=== PATIENT | male | born 1970 | race Two or more races ===

== ENCOUNTER 2024-04-04 08:47 | Emergency (ER) | payer BC, OTHER ==
[~2024-04-04] VITALS: Ht 172.7 cm; Wt 73.9 kg
[2024-04-04 09:24] VITALS: BP 130/88; PULSE 102; RESP 16; TEMP 97; O2SAT 98
--- NOTE | 2024-04-04 10:21 | ED.PDOC ---
General HPI Comments Portions of this chart may have been created with an modal fluency direct voice recognition software. Occasional wrong-word or "sound-alike" substitutions may have occurred due to the inherent limitations of voice recognition software. Please read the chart carefully and recognize, using context, where these substitutions have occurred. [facility]CP [facility] 53-year-old gentleman with a history of hemorrhoids presents with a chief complaint of external lump to the right gluteal fold lateral to the rectum x1 week. Patient reports symptoms have been gradually worsening in his able to get minimal relief with [id number] preparation H wipes Denies any other complaint. Last bowel movement was today normal Denies fevers chills night sweats unintentional weight loss Denies nausea vomiting diarrhea Denies blood in the stool Denies sick contact with similar symptoms Denies new foods/medications Denies family history of GI cancer Chief Complaint: Rectal Pain Time Seen by MD: 09:03 Primary Care Provider: UNKNOWN Reviewed notes: Nurses Notes, Medications, Allergies Allergies: Coded Allergies: NO KNOWN ALLERGIES (Unverified , 04/04/24) Information Source: Patient Mode of Arrival: Ambulatory Family History Family History: Reviewed,noncontributory to illness Social History Smoker: Non-Smoker Alcohol: Denies ETOH Use Drugs: Denies Drug Use All Other Systems: Reviewed and Negative (per hpi) Physical Exam General Appearance: No Apparent Distress, Normal HEENT: Normal ENT Inspection, Pharynx Normal, TMs Normal Neck: Full Range of Motion, Non-Tender, Normal, Normal Inspection Respiratory: Chest Non-Tender, Lungs Clear, No Accessory Muscle Use, No Respiratory Distress, Normal Breath Sounds Cardiovascular: No Edema, No JVD, No Murmur, No Gallop, Normal Peripheral Pulses, Regular Rate/Rhythm Breast Exam: Deferred Gastrointestinal: No Organomegaly, Non Tender, No Pulsatile Mass, Normal Bowel Sounds, Soft Genitalia: Deferred Pelvic: Deferred Rectal: Other (Localized ruptured abscess to the right gluteal fold lateral to the rectum. Abscess was drained spontaneously. No crepitus to palpation. No surrounding erythema.) Extremities: No calf tenderness, Normal capillary refill, Normal inspection, Normal range of motion, Non-tender, No pedal edema Musculoskeletal : Apperance: Normal Neurologic: Alert, sewer pipe layer II-XII nml as Tested, No Motor Deficits, Normal Affect, Normal Mood, No Sensory Deficits Cerebellar Function: Normal Reflexes: Normal Skin: Dry, Normal Color, Warm Lymphatic: No Adenopathy Was a procedure done? Was a procedure done?: Yes Sedation Sedation?: No Incision and Drainage Incision and Drainage: Abscess Location buttock Preparation: Betadine, Saline Incision and Wound: Pus Informed consent obtained: Yes Risks/benefits/alt described: Yes Differential Diagnosis Kidney stone (Female): Other X-Ray, Labs, Meds, VS Vital Signs Date Time Temp Pulse Resp B/P (MAP) Pulse Ox O2 Delivery O2 Flow Rate FiO2 04/04/24 09:24 102 16 98 Room Air 04/04/24 09:24 97.0 102 16 130/88 (102) 98 97.0 04/04/24 08:56 97.0 102 16 130/88 (102) 98 X-Ray, Labs, Meds, VS Comment On reevaluation, patient had symptomatic improvement. After review of systems and physical exam, findings consistent with abscess that spontaneously drained. During the length of his stay the wound was cleansed irrigated and patient received total Rocephin empirically Patient is stable for discharge at this time. External notes reviewed. Test results and diagnostic imaging interpreted. All diagnostic findings, discharge care, education and instructions provided Follow-up with PCP in 2 to 3 days Patient verbalized understanding and agreed to treatment plan Vital signs stable, afebrile, no acute distress noted Patient ambulatory with strong steady gait Advised to return precautions for any new or worsening symptoms, return to ER immediately for re-evaluation Patient is aware that the purpose of this visit was for an acute medical emergency requiring emergent stabilization. Chronic conditions, including malignancies have not been ruled out. Patient is instructed to follow up with PCP as directed and discharge instructions for continued care and workup. If unable to arrange follow-up, patient is to return to the emergency department for reassessment. Patient (parent or legal guardian if applicable) was given verbal and written discharge instructions and acknowledges understanding. Time of 1ST Reevaluation: 10:52 Reevaluation 1ST: Improved Patient Education/Counseling: Diagnosis, Treatment Family Education/Counseling: Diagnosis, Treatment Departure 1 Departure Time of Disposition: 10:54 Impression: Primary Impression: Abscess Disposition: 01 HOME / SELF CARE / HOMELESS Condition: Stable e-Prescriptions Ibuprofen Micronized (Ibuprofen) 800 Mg Tab 800 MG PO TIDWM for 10 Days, #30 TAB 0 Refills Prov: JOSETTE FERRO NP 04/04/24 Sulfamethoxazole W/Trimethopri (Bactrim Ds Tablet) 1 Tab Tb 1 TAB PO BID for 7 Days, #14 TAB 0 Refills Prov: JOSETTE FERRO NP 04/04/24 Cephalexin Monohydrate (Cephalexin) 500 Mg Cap 1 CAP PO QID for 5 Days, #20 CAP 0 Refills Prov: JOSETTE FERRO NP 04/04/24 Discharged With: Self Critical Care Note Critical Care Time?: No Stability Stability form required: No Heart Score Heart Score: Heart Score Response (Comments) Value History N/A 0 EKG N/A 0 Age N/A 0 Risk Factors N/A 0 Troponin N/A 0 Total 0 JOSETTE FERRO NP Apr 04, 2024 10:21
[2024-04-04] MEDS ORDERED: IBUP-1455 PO (10:55)
[2024-04-04] MEDS ORDERED: CEPH500C PO (10:55)
[2024-04-04] MEDS ORDERED: BACDST PO (10:55)
[2024-04-04] MEDS: cefTRIAXone SOD 1,000 MG VL IM ONE (11:01)
[2024-04-04] MEDS: KETOROLAC TROMETH 30 MG/ML 1ML VIAL IM ONE (11:01)
== END 2024-04-04 10:55 | disposition home or self-care (01) ==
LOC: ER 08:47
DX: L02.31 Cutaneous abscess of buttock (principal); K62.89 Other specified diseases of anus and rectum; Z87.19 Personal history of other diseases of the digestive system
CPT/HCPCS: 10060; 96372; 99284; J0696; J1885